=== PATIENT | female | born 1955 ===

== ENCOUNTER 2023-10-14 05:08 | Emergency (ER) | payer MEDICARE, MEDICAID, SELFPAY ==
--- NOTE | ~2023-10-14 | CT_ITS ---
EXAMINATION: CT ABDOMEN AND PELVIS WITH CONTRAST CLINICAL INFORMATION: 67-year-old female with history of diverticulitis and left lower quadrant abdominal pain COMPARISON: None available. TECHNIQUE: Multidetector volumetric images were obtained from the superior aspect of the liver through the pubic symphysis following administration 85 mL of Omnipaque 350 intravenous contrast. Sagittal and coronal reformatted images were obtained on the technologist's workstation. Oral contrast: No This CT examination was performed using dose optimization techniques as appropriate, variously including the following: *Automated exposure control *Adjustment of mA and/or kV according to patient size (this includes techniques or standardized protocols for targeted exams where dose is matched to indication/reason for exam; i.e. extremities or head) *Use of iterative reconstruction technique DLP: 692 mGy-cm FINDINGS: LUNG BASES: The visualized lung bases are unremarkable. LIVER, GALLBLADDER, AND BILIARY TREE: Liver is of low attenuation due to hepatic steatosis and enlarged. There is no intrahepatic masses or ductal dilatation. The gallbladder is unremarkable with no evidence of radiopaque gallstones, gallbladder wall thickening, or obvious pericholecystic inflammatory changes. PANCREAS: Unremarkable. SPLEEN: Unremarkable. ADRENAL GLANDS: Unremarkable. KIDNEYS AND URETERS: The kidneys are unremarkable. Left kidney demonstrate interpolar simple 2.8 cm cyst. There is no hydroureteronephrosis or nephrolithiasis seen bilaterally. BLADDER: Unremarkable. GASTROINTESTINAL TRACT: There is extensive sigmoid and descending colon diverticulosis with haziness of mesenteric fat surrounding sigmoid colon and descending colon, without evidence of perforation or abscess formation, but the colonic wall is thickened, most likely due to diverticulitis with elements of colitis. The largest diverticulum seen on image 59/3 without evidence of perforation, but surrounded by significant amount of inflammatory changes in the mesentery. The rest of colon is unremarkable with appendix is not clearly seen. Small bowel loops and stomach are normal. ABDOMINAL WALL: There is small fat-containing umbilical hernia. LYMPH NODES: Normal. VASCULAR: Abdominal aorta is not dilated with calcifications in the wall. PELVIC VISCERA: Unremarkable. There is fluid in the pelvis. OSSEOUS STRUCTURES: There are degenerative changes in lumbar spine with grade 1 anterior listhesis of L4 over L5 and facets arthropathy is. There are degenerative changes in both sacroiliac joints with vacuum phenomenon. CT/CT abdomen pelvis w IV con IMPRESSION: 1. Diverticulitis of sigmoid colon and descending colon without evidence of perforation or abscess formation. 2. Hepatomegaly with hepatic steatosis. 3. 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 Fleischner guidelines were followed.
[2023-10-14 05:14] VITALS: BP 150/97; PULSE 104; RESP 18; TEMP 36.8; O2SAT 97; BMI 33.0
[2023-10-14 05:29] LABS: Basophils Percent Auto 0.3 % (0-2); Eosinophils Absolute Auto 0.1 X10*3/uL (0.0-0.4); Eosinophils Percent Auto 0.6 % (0-4); Hematocrit 41.4 % (37.0-47.0); Imm Gran Abs Auto 0.04 X10*3/uL (0.00-0.03); Imm Gran Pct Auto 0.3 % (0.0-0.4); Lymphocytes Absolute Auto 1.5 X10*3/uL (1.2-4.9); Lymphocytes Percent Auto 11.8 % (20-40); MANUAL DIFF FLAG NO; Mean Corpuscular HGB Conc 33.8 g/dl (31.0-35.0); Mean Corpuscular Hemoglobin 30.8 pg (27.0-33.0); Mean Corpuscular Volume 91.2 fL (80.0-98.0); Mean Platelet Volume 10.2 fL (9.4-12.3); Monocytes Absolute Auto 0.9 X10*3/uL (0.1-1.2); Monocytes Percent Auto 7.2 % (2-11); Neutrophils Absolute Auto 10.1 x10*3/uL (2.0-8.3); Neutrophils Percent Auto 79.8 % (45-73); Platelet Count 305 X10*3/uL (160-400); Red Blood Count 4.54 X10*6/uL (4.20-5.50); Red Cell Distribution Width 12.7 % (11.0-16.0); White Blood Count 12.6 X10*3/uL (4.8-10.8)
[2023-10-14 05:40] LABS: Appearance Urine Cloudy; Color Urine Yellow; Glucose Urine UA Negative (Negative); Leukocyte Esterase Urine Moderate (2+) (Negative); Nitrite Urine Negative (Negative); PH >= 9.0 (5.0-9.0); Specific Gravity - Urine 1.015 (1.005-1.025); UMIC TRIGGER UACC YES; Urine Blood Negative (Negative); Urine Ketones Negative (Negative); Urine Protein Negative (Neg-Trace)
[2023-10-14 05:45] LABS: Alanine Aminotransferase 25 U/L (0-31); Albumin Level 4.3 g/dL (3.5-5.0); Alkaline Phosphatase 64 U/L (39-117); Anion Gap 14 (12-20); Aspartate Amino Transferase 19 U/L (5-31); Bilirubin Total 0.6 mg/dL (0.0-1.0); Blood Urea Nitrogen 14 mg/dL (9-16); Calcium 9.8 mg/dL (8.4-10.2); Carbon Dioxide 28 mmol/L (22-29); Chloride 101 mmol/L (96-108); Creatinine Clr Calc Pharmacy 92.2; Estimated Glomerular Filt Rate > 60; Glucose Random 110 mg/dL (60-115); Potassium 4.1 mmol/L (3.3-5.1); Sodium 139 mmol/L (135-145); Total Protein 8.5 g/dL (6.5-8.0)
[2023-10-14 05:48] LABS: Bacteria Urine None Seen (None Seen); Hyaline Casts Urine 0-2 /LPF (0-2); RBC Urine 0-2 /HPF (0-2); WBC Urine 0-5 /HPF (0-5)
--- NOTE | 2023-10-14 06:28 | ED.GENADULT ---
HPI - General Adult General Chief complaint: Abdominal Pain Stated complaint: Abd pain Time Seen by Provider: 10/14/23 06:28 Source: patient Mode of arrival: ambulatory Limitations: no limitations History of Present Illness HPI narrative: Patient is a 67-year-old female with history of diverticulitis presenting to the emergency department with complaint of left lower quadrant abdominal pain since Saturday. Reports she has had some constipation, denies any diarrhea. Last bowel movement was yesterday and patient describes as normal. Denies any nausea or vomiting. Denies fevers. Denies any hematochezia or melena. Reports pain has been constant. Denies any dysuria, frequency, hematuria or other urinary symptoms. Tried OTC Gas-X as well as gas relief tea without change in symptoms. MD complaint: abdominal pain Onset (ago): day(s) Location: abdomen Radiation: non-radiation Severity scale (1-10): 8 Quality: aching Pain Consistency: constant Relieving factors: none Exacerbating factors: none Treatments prior to arrival: other Related Data Previous Rx's Medication Instructions Recorded amoxicillin 875 mg-potassium 1 tab PO TID 10 days #30 tabs 10/14/23 clavulanate 125 mg tablet Allergies Allergy/AdvReac Type Severity Reaction Status Date / Time No Known Allergies Allergy Verified 10/14/23 05:11 Review of Systems Review of Systems: As per HPI. Yes all other systems are reviewed and are negative Constitutional: Constitutional: Reports as per HPI [facility] Social History Social History Advance Directives: No Advance Directives Information Provided: No Physical Exam ED Vital Signs: Vital Signs - 24 hr 10/14/23 05:14 Temperature 98.3 F Pulse Rate 104 H Respiratory Rate 18 Blood Pressure 150/97 H Pulse Oximetry 97 Oxygen Delivery Method Room Air BMI result Body Mass Index 33.0 Vital signs have been reviewed and appear to be correct. Blood pressure elevated. Heart rate mildly tachycardic. Respiratory rate normal. Temperature normal. Oxygen saturation normal. Const General: cooperative, healthy appearing and no acute distress Orientation/consciousness: oriented to person, oriented to place, oriented to time and patient oriented x3 Limitations: no limitations HENMT Head: Yes normocephalic and Yes atraumatic Ears: external ears normal General nose exam: Normal external nose present Face and sinus: Yes face symmetric Mouth: oropharynx normal and moist mucous membranes Throat: Yes uvula midline Eyes Pupils: Equal, round and reactive pupils present Neck Neck: Yes normal visual inspection and Yes supple Resp Effort & Inspection: normal respiratory effort and able to speak in complete sentences Auscultation: clear to auscultation bilaterally Cardio Rate: regular rate Rhythm: regular rhythm Heart sounds: S1 normal heart sound present and S2 normal heart sound present GI Palpation (GI): Soft to palpation, Tenderness to palpation present (GI) in the LLQ, no guarding and No Rebound tenderness present Auscultation: normoactive bowel sounds General: Yes no CVA tenderness Back/Spine/Pelvis Back: no CVA tenderness Skin General skin exam: elasticity normal and turgor normal Neuro General: oriented to person, oriented to place, oriented to time, patient oriented x3, moves all extremities, no focal motor deficits and CN's II-XI intact bilaterally Cranial nerves: Yes Equal, round and reactive pupils present Cognition (Neuro): normal cognition Extrem General: Yes full ROM, Yes no pedal edema and Yes no calf tenderness Psych Mental Status: mental status grossly normal Affect: normal affect Thought process: Normal thought process present Medications Administered Discontinued Medications Generic Name Dose Route Start Last Admin Trade Name Freq PRN Reason Stop Dose Admin Iohexol 100 ml 10/14/23 08:06 10/14/23 08:06 Iohexol 350 Mg/Ml 100 Ml Infus..Btl IV 10/14/23 08:07 85 ml ONCE ONE Administration Medical Decision Making Medical Decision Making [facility] Narrative: Patient is a 67-year-old female with history of diverticulitis presenting to the emergency department with complaint of left lower quadrant abdominal pain since Saturday. On exam patient is awake, A+Ox3, VS WNL, afebrile, normal neurological exam without focal deficits, physical exam findings as above. Given reported symptoms and physical exam findings, initial differential includes diverticulitis, obstruction, constipation, UTI, . Labs notable for mild leukocytosis, no other significant abnormalities. UA notable for 2+ leukocytes, negative nitrites, no bacteria, do not feel symptoms are due to UTI. CT notable for diverticulitis. My interpretation is in agreement with the radiologist's interpretation. Given that patient is hemodynamically stable and tolerating p.o. at this time feel patient is stable for discharge home on p.o. antibiotics. Instructed patient follow-up with primary care provider. Return precautions discussed at bedside. Patient verbalized understanding of and agreement with plan. Differential Diagnosis Differential Diagnoses: The differential diagnosis associated with the presentation includes As per MDM. Admission/Observation Consideration of admission/observation: Escalation of care including admission/observation considered Lab Data [facility] Lab Attestation statement: I reviewed the patient's lab results. As per MDM. 10/14/23 05:25 10/14/23 05:25 Labs: Lab Results 10/14/23 10/14/23 Range/Units 05:25 05:33 WBC 12.6 H (4.8-10.8) X10*3/uL RBC 4.54 (4.20-5.50) X10*6/uL Hgb 14.0 (12.0-16.0) g/dl Hct 41.4 (37.0-47.0) % MCV 91.2 (80.0-98.0) fL MCH 30.8 (27.0-33.0) pg MCHC 33.8 (31.0-35.0) g/dl RDW 12.7 (11.0-16.0) % Plt Count 305 (160-400) X10*3/uL MPV 10.2 (9.4-12.3) fL Immature Gran % (Auto) 0.3 (0.0-0.4) % Neut % (Auto) 79.8 H (45-73) % Lymph % (Auto) 11.8 L (20-40) % [place] % (Auto) 7.2 (2-11) % Eos % (Auto) 0.6 (0-4) % Baso % (Auto) 0.3 (0-2) % Lymph # (Auto) 1.5 (1.2-4.9) X10*3/uL [place] # (Auto) 0.9 (0.1-1.2) X10*3/uL Eos # (Auto) 0.1 (0.0-0.4) X10*3/uL Baso # (Auto) 0.0 (0.0-0.2) X10*3/uL Abs Immat Gran (auto) 0.04 H (0.00-0.03) X10*3/uL Absolute Neuts (auto) 10.1 H (2.0-8.3) x10*3/uL Absolute Nucleated RBC 0.000 (0.0-0.012) X10*3/uL Nucleated RBC % (auto) 0.0 (0.0-0.2) /100WBC Sodium 139 (135-145) mmol/L Potassium 4.1 (3.3-5.1) mmol/L Chloride 101 (96-108) mmol/L Carbon Dioxide 28 (22-29) mmol/L Anion Gap 14 (12-20) BUN 14 (9-16) mg/dL Creatinine 0.65 (0.5-1.4) mg/dL Estim Creat Clear Calc 92.2 Estimated GFR > 60 Random Glucose 110 (60-115) mg/dL Calcium 9.8 (8.4-10.2) mg/dL Total Bilirubin 0.6 (0.0-1.0) mg/dL AST 19 (5-31) U/L ALT 25 (0-31) U/L Alkaline Phosphatase 64 (39-117) U/L Total Protein 8.5 H (6.5-8.0) g/dL Albumin 4.3 (3.5-5.0) g/dL Urine Color Yellow Urine Appearance Cloudy Urine pH >= 9.0 (5.0-9.0) Ur Specific [place] 1.015 (1.005-1.025) Urine Protein Negative (Neg-Trace) mg/dL Urine Glucose (UA) Negative (Negative) mg/dL Urine Ketones Negative (Negative) mg/dL Urine Blood Negative (Negative) Urine Nitrite Negative (Negative) Ur Leukocyte Esterase Moderate (2+) H (Negative) Urine RBC 0-2 (0-2) /HPF Urine WBC 0-5 (0-5) /HPF Ur Squamous Epith Cells 6-10 (0-2) /HPF Urine Bacteria None Seen (None Seen) Hyaline Casts 0-2 (0-2) /LPF Independent Interpretation I performed an independent interpretation of an: CT Scan Interpretation: Diverticulitis of sigmoid colon Radiology Impression Discussion of test interpretation with radiology: I have reviewed the radiologist's reading. Radiologist Impression: CT/CT abdomen pelvis w IV con IMPRESSION: 1. Diverticulitis of sigmoid colon and descending colon without evidence of perforation or abscess formation. 2. Hepatomegaly with hepatic steatosis. 3. 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 External Record Review External record reviewed: Inpatient record, Office record and Outpatient record Prescription Management I considered prescription management with: Antibiotic Discharge Plan Discharge Clinical Impression: Diverticulitis Patient Disposition: Home, Self-Care Instructions: Diverticulitis (ED), Diverticulitis Diet (ED) Additional Instructions: You were evaluated in the emergency department today for abdominal pain. Your CT scan showed evidence of diverticulitis and you are being treated with antibiotics. Please complete the full course of antibiotics as prescribed. Once you have completed the antibiotics, it would be helpful to begin taking a probiotic called saccharomyces boulardii. Please follow-up with your primary care provider this week. Return to the emergency department if you develop increasing pain, persistent vomiting, fever 100.4? F or greater, inability to tolerate food or fluids by mouth or any other concerning symptoms. Prescriptions: New amoxicillin-pot clavulanate 875-125 mg tablet 1 tab PO TID 10 Days Qty: 30 0RF
[2023-10-14] MEDS: iohexoL 350 MG/ML 100 ML INFUS..BTL IV (08:06)
== END 2023-10-14 08:54 | disposition home or self-care (01) ==
PROVIDERS: Emergency Provider Emergency Medicine
DX: K57.32 Diverticulitis of large intestine without perforation or abscess without bleeding (principal); R10.32 Left lower quadrant pain; Z79.899 Other long term (current) drug therapy
CPT/HCPCS: 36415; 74177; 80053; 81001; 85025; 99283; 99284; Q9967

== ENCOUNTER 2024-09-01 09:29 | Emergency (ER) | payer MEDICARE, MEDICAID, SELFPAY ==
[2024-09-01 09:30] VITALS: BP 143/73; PULSE 100; RESP 20; TEMP 37; O2SAT 100; BMI 31.6
--- NOTE | 2024-09-01 09:40 | ED_ITS ---
HPI - Female Genitourinary General Chief complaint: Abdominal Pain Stated complaint: Burning upon urination Time Seen by Provider: 09/01/24 09:40 Source: patient Mode of arrival: ambulatory Limitations: no limitations History of Present Illness ED Provider: Fanta Reece PA-C HPI Narrative: 68 yo female presents to the ER for evaluation of dysuria. She was seen by her PCP yesterday who prescribed her Bactrim. She took 3 doses and is still having symptoms. she reports burning with urination, urgency and frequency. she developed hematuria today. no vaginal bleeding. no flank pain, back pain, fever, chills, N/V/D, or abdominal pain. MD elicited complaint: dysuria and UTI Pertinent past history: recurrent UTIs (2x per year) Onset (ago): day(s) (4) Location of symptoms: suprapubic and urethra Severity: moderate Female Urogenital Radiation: Non-Radiating Quality of pain: burning Consistency: intermittent Vaginal discharge: none Vaginal bleeding: none Urinary symptoms: Dysuria, Urgency, Frequency and Hematuria Exacerbating factors: urination Relieving factors: none Associated symptoms: denies other symptoms Treatment prior to arrival: none Related Data Previous Rx's ?Medication ?Instructions ?Recorded amoxicillin 875 mg-potassium 1 tab PO TID 10 days #30 tabs 10/14/23 clavulanate 125 mg tablet cefuroxime axetil 250 mg tablet 250 mg PO BID 7 days #14 tabs 09/01/24 Allergies Allergy/AdvReac Type Severity Reaction Status Date / Time No Known Allergies Allergy Verified 09/01/24 09:33 Review of Systems Review of Systems: Yes all other systems are reviewed and are negative PMFSH Social History Social History Smoked in Last 30 Days: No Use of substances other than those prescribed or required for medical reasons: No Advance Directives: No Advance Directives Information Provided: Yes Physical Exam Vital Signs: Vital Signs: Last Vital Signs Temp 98.6 F 09/01/24 09:30 Pulse 100 09/01/24 09:30 Resp 20 09/01/24 09:30 BP 143/73 H 09/01/24 09:30 Pulse Ox 100 09/01/24 09:30 O2 Del Method Room Air 09/01/24 09:30 BMI result Body Mass Index 31.6 Appearance: Alert. Oriented X3. No acute distress. HEENT: normal external inspection Neck: Normal inspection. Neck supple. CVS: Normal heart rate and rhythm. Pulses normal. Respiratory: No respiratory distress. Breath sounds normal. Abdomen: Soft and nontender. +BS x4. No CVA tenderness. Skin: Skin warm and dry. Normal skin color. Normal skin turgor. No rashes. Extremities: No lower extremity edema. No joint swelling. Neuro/psych: Oriented X 3. grossly normal, nonfocal Medications Administered Discontinued Medications Generic Name Dose Route Start Last Admin Trade Name Tam PRN Reason Stop Dose Admin Cefuroxime Axetil 500 mg 09/01/24 10:01 09/01/24 10:11 Cefuroxime Axetil 500 Mg Tablet PO 09/01/24 10:02 500 mg ONCE ONE Administration Phenazopyridine HCl 100 mg 09/01/24 10:01 09/01/24 10:11 Phenazopyridine Hcl 100 Mg Tablet PO 09/01/24 10:02 100 mg ONCE ONE Administration Medical Decision Making Medical Decision Making [facility] Narrative: 68 yo female presenting with dysuria, urgency, frequency x4 days and new onset hematuria today. took bactrim x3 with no relief. VSS on arrival. no fevers. physical exam unremarkable. low suspicion for pyelonephritis or sepsis. UA is consistent w/ infection. there is blood in the urine but no concerning symptoms for ureteral stone. no CVA tenderness likely resistant to bactrim will start ceftin and have her follow up with PCP later this week. given return precautions if there is no improvement with the new antibiotic. stable for d/c home Differential Diagnosis Differential Diagnoses: The differential diagnosis associated with the presentation includes UTI, pyelonephritis, kidney stone, bladder cancer Admission/Observation Consideration of admission/observation: Escalation of care including admission/observation considered Lab Data [facility] Lab Attestation statement: I reviewed the patient's lab results. +UTI Labs: Lab Results 09/01/24 Range/Units 09:48 Urine Color BROWN Urine Appearance Turbid Urine pH 6.5 (5.0-9.0) Ur Specific [place] 1.025 (1.005-1.025) Urine Protein 300 (3+) H (Neg-Trace) mg/dL Urine Glucose (UA) Negative (Negative) mg/dL Urine Ketones Trace (Negative) mg/dL Urine Blood Large (3+) H (Negative) Urine Nitrite Positive H (Negative) Ur Leukocyte Esterase Moderate (2+) H (Negative) External Record Review External record reviewed: Outpatient record, Prior outpatient labs and Prior outpatient radiology Tests considered The following testing was considered but not selected: basic labs and kidney function considered Prescription Management I considered prescription management with: Pain Medication and Antibiotic Chronic Conditions Patient?s care impacted by: Other (recurrent UTI) Critical Care Time Critical Care Time Critical Care Time: No Discharge Plan Discharge Clinical Impression: Acute UTI Patient Disposition: Home, Self-Care Instructions: Urinary Tract Infection in Women (DC) Additional Instructions: STOP taking the previously prescribed antibiotic START taking the new antibiotic. Next dose is due at bedtime tonight. You were given 1st dose today in the ER Drink plenty of water and stay hydrated Follow up with your doctor next week If you develop new or worsening symptoms call 911 or come back to the ER for further evaluation. Prescriptions: New cefuroxime axetil 250 mg tablet 250 mg PO BID 7 Days Qty: 14 0RF No Action amoxicillin-pot clavulanate 875-125 mg tablet 1 tab PO TID 10 Days Qty: 30 0RF Print Language: Chinese
--- NOTE | 2024-09-01 09:50 | PC.NURSE ---
Pt comes to ED today with c/o significant burning with urination along with hesitancy and frequency. Pt reports pain 10/10 x3 days. She states she went to see her primary yesterday and was prescribed Bactrim DS, shes taken 3 doses and has felt no relief and an increase in pain. A&Ox3, VSS, afebrile. U/A sent to lab--awaiting results.
[2024-09-01 09:58] LABS: Appearance Urine Turbid; Color Urine BROWN; Glucose Urine UA Negative (Negative); Leukocyte Esterase Urine Moderate (2+) (Negative); Nitrite Urine Positive (Negative); PH 6.5 (5.0-9.0); Specific Gravity - Urine 1.025 (1.005-1.025); UMIC TRIGGER UACC YES; Urine Blood Large (3+) (Negative); Urine Ketones Trace mg/dL (Negative); Urine Protein 300 (3+) mg/dL (Neg-Trace)
[2024-09-01] MEDS: Phenazopyridine HCL 100 MG TABLET PO (10:11)
[2024-09-01] MEDS: cefuroxime axetiL 500 MG TABLET PO (10:11)
[2024-09-01 10:33] LABS: Bacteria Urine Trace (None Seen); Hyaline Casts Urine 0-2 /LPF (0-2); RBC Urine >20 /HPF (0-2); UACC Culture Trigger YES; WBC Urine >50 /HPF (0-5)
[2024-09-01 10:35] VITALS: BP 147/89; PULSE 91; RESP 18; TEMP 37.1; O2SAT 99
== END 2024-09-01 10:35 | disposition home or self-care (01) ==
PROVIDERS: Emergency Provider Student in an Organized Health Care Education/Training Program
DX: N39.0 Urinary tract infection, site not specified (principal); B96.4 Proteus (mirabilis) (morganii) as the cause of diseases classified elsewhere; R35.0 Frequency of micturition
CPT/HCPCS: 81001; 87086; 87088; 87186; 99283; 99284